=== PATIENT | female | born 1965 | race Caucasian/White ===

== ENCOUNTER 2016-12-18 17:25 | Emergency (ER) | payer SELFPAY ==
--- NOTE | 2016-12-18 17:56 | UC ---
Upper Extremity HPI - HPI Summary HPI Summary: 51 YEAR OLD FEMALE PRESENTS WITH COMPLAINS OF RIGHT SHOULDER PAIN AFTER A STUDENT KEPT PULLING ON HER ARM. - History of Current Complaint Stated Complaint: RIGHT SHOULDER PAIN Time Seen by Provider: 12/18/16 17:55 Hx Obtained From: Patient Hx Last Menstrual Period: 02/11/13 Onset/Duration: Sudden Onset Severity Initially: Moderate Severity Currently: Moderate Pain Scale Used: 0-10 Numeric - 6 Location Of Pain: Is Discrete @ Character: Sharp, Throbbing - Allergies/Home Medications Allergies/Adverse Reactions: Allergies Allergy/AdvReac Type Severity Reaction Status Date / Time Sulfa Drugs Allergy Intermediate Rash Verified 12/18/16 18:35 PMH/Surg Hx/FS Hx/Imm Hx Previously Healthy: Yes - Surgical History Surgical History: Yes Surgery Procedure, Year, and Place: . TMJ Surgery. GANGLION CYST - Lt MIDDLE FINGER. COLLAR FX - REPAIR. RIGHT THUMB GANGLION CYST REMOVAL- [facility] - Social History Alcohol Use: Rare Substance Use Type: None Smoking Status (MU): Never Smoked Tobacco Review of Systems Constitutional: Negative Skin: Negative Eyes: Negative ENT: Negative Respiratory: Negative Cardiovascular: Negative Gastrointestinal: Negative Genitourinary: Negative Motor: Negative Neurovascular: Negative Musculoskeletal: Other: - RIGHT SHOULDER PAIN/STRAIN Neurological: Negative Psychological: Negative All Other Systems Reviewed And Are Negative: Yes Physical Exam Triage Information Reviewed: Yes Appearance: Well-Appearing Eye Exam: Normal ENT Exam: Normal Dental Exam: Normal Neck exam: Normal Neck: Positive: 1 Respiratory Exam: Normal Cardiovascular Exam: Normal Abdominal Exam: Normal Musculoskeletal: Positive: Other: - RIGHT SHOULDER PAIN Neurological Exam: Normal Psychological Exam: Normal Skin Exam: Normal Upper Extremity Course/Dx - Differential Dx/Diagnosis Provider Diagnoses: RIGHT BICEP TENDONITIS. RIGHT SHOULDER IMPINGENT Discharge - Discharge Plan Condition: Stable Disposition: HOME Prescriptions: Meloxicam [Mobic] 7.5 mg PO BID PC #30 tab Methocarbamol TAB* [Robaxin 500 MG TAB*] 500 mg PO TID PRN #30 tab PRN Reason: Spasms Patient Education Materials: Shoulder Sprain (ED) Referrals: Billy Mendez MD [Medical Doctor] - Antony Moreno DO [Primary Care Provider] -
[2016-12-18 18:35] VITALS: BP 150/74
== END 2016-12-18 18:35 | disposition home or self-care (01) ==
LOC: UCCORT 17:25
DX: M75.21 Bicipital tendinitis, right shoulder (principal); M25.811 Other specified joint disorders, right shoulder; Z88.2 Allergy status to sulfonamides
CPT/HCPCS: 99212; G0463

== ENCOUNTER 2018-08-29 18:59 | Emergency (ER) | payer BC ==
[2018-08-29 19:54] VITALS: BP 126/62
--- NOTE | 2018-08-29 20:04 | UC ---
Throat Pain/Nasal Bhanu HPI - HPI Summary HPI Summary: 53 y/o female presents to the urgent care c/o sore throat for the past 3 days. Hoarseness and a dry cough developed today. He grand daughter have similar symptoms. Pain w/ swallowing is 6/10. She has been taking Ibuprofen 400mg PO to alleviate symptoms. Pt denies fever, HENDERSON, dizziness, chest pain abdominal pain , N/V/D. - History of Current Complaint Chief Complaint: UCGeneralIllness Stated Complaint: SORE THROAT Time Seen by Provider: 08/29/18 19:41 Hx Obtained From: Patient Hx Last Menstrual Period: 02/2018 ?: No - menopausal Onset/Duration: Gradual Onset, Lasting Days - 3 days, Still Present, Worse Since - today Severity: Moderate Pain Intensity: 2 Pain Scale Used: 0-10 Numeric Cough: Nonproductive Associated Signs & Symptoms: Positive: Hoarseness, Nasal Discharge - clear. Negative: Dysphagia, Wheezing - Epiglottits Risk Factors Epiglottis Risk Factors: Negative - Allergies/Home Medications Allergies/Adverse Reactions: Allergies Allergy/AdvReac Type Severity Reaction Status Date / Time Sulfa (Sulfonamide Allergy Rash Verified 08/29/18 19:43 Antibiotics) Home Medications: Home Medications Ibuprofen TAB* [Advil TAB*] 400 mg PO Q6H PRN 08/29/18 [History Confirmed ] Losartan/Hydrochlorothiazide [Losartan Potassium/Hydroc 100-25 mg] 1 tab PO DAILY 08/29/18 [History Confirmed 08/29/18] PMH/Surg Hx/FS Hx/Imm Hx Previously Healthy: Yes Cardiovascular History: Hypertension - Surgical History Surgical History: Yes Surgery Procedure, Year, and Place: . TMJ Surgery. GANGLION CYST - Lt MIDDLE FINGER. COLLAR FX - REPAIR. RIGHT THUMB GANGLION CYST REMOVAL- [facility]. RIGHT ELBOW AND CARPAL TUNNEL SX~2016 - Family History Known Family History: Positive: Unknown - Pt is adopted - Social History Occupation: Employed Full-time Lives: With Family Alcohol Use: Rare Substance Use Type: None Smoking Status (MU): Never Smoked Tobacco Review of Systems All Other Systems Reviewed And Are Negative: Yes Constitutional: Positive: Negative Skin: Positive: Negative Eyes: Positive: Negative ENT: Positive: Sore Throat, Nasal Discharge - clear, Other - hoarseness Respiratory: Positive: Cough - dry Cardiovascular: Positive: Negative Gastrointestinal: Positive: Negative Genitourinary: Positive: Negative Motor: Positive: Negative Neurovascular: Positive: Negative Musculoskeletal: Positive: Negative Neurological: Positive: Negative Psychological: Positive: Negative Is Patient Immunocompromised?: No Physical Exam - Summary Physical Exam Summary: VITAL SIGNS: Reviewed. GENERAL: Patient is a well developed and nourished female who is sitting comfortable in the examining table. Patient is not in any acute respiratory distress. HEAD AND FACE: No signs of trauma. No ecchymosis, hematomas or skull depressions. No sinus tenderness. EYES: PERRLA, EOMI x 2, No injected conjunctiva, no nystagmus. No photophobia. EARS: Hearing grossly intact. Ear canals and tympanic membranes are within normal limits. MOUTH: Positive pharynx with erythema, exudates, palatal petechiae. B/L tonsillar enlargement with exudate. Uvula in midline. NECK: Supple, trachea is midline, Positive anterior cervical lymphadenopathy, no JVD, no carotid bruit, no c-spine tenderness, neck with full ROM. No meningeal signs, no Kernig's or brudzinskis signs. CHEST: Symmetric, no tenderness at palpation LUNGS: Clear to auscultation bilaterally. No wheezing or crackles. CVS: Regular rate and rhythm, S1 and S2 present, no murmurs or gallops appreciated. ABDOMEN: Soft, non-tender. No signs of distention. No rebound no guarding, and no masses palpated. Bowel sounds are normal. EXTREMITIES: FROM in all major joints, no edema, no cyanosis or clubbing. NEURO: Alert and oriented x 3. No acute neurological deficits. Speech is normal and follows commands. SKIN: Dry and warm Triage Information Reviewed: Yes Vital Signs: Initial Vital Signs Temp 98.1 F 08/29/18 19:44 Pulse 93 08/29/18 19:44 Resp 18 08/29/18 19:44 BP 126/62 08/29/18 19:44 Pulse Ox 98 08/29/18 19:44 Throat Pain/Nasal Course/Dx - Course Course Of Treatment: 53 y/o female presents to the urgent care c/o sore throat for the past 3 days. Hoarseness and a dry cough developed today. He grand daughter have similar symptoms. Pain w/ swallowing is 6/10. She has been taking Ibuprofen 400mg PO to alleviate symptoms. Pt denies fever, HENDERSON, dizziness, chest pain abdominal pain , N/V/D. Pt w/ pharyngitis on examination. Rapid strep ordered, result: negative. Viral pharyngitis.Pt Rx ibuprofen PO to alleviates symptoms of pain and swelling. Advised on hand washing to avoid spreading. Pt advised to rest her voice, eat well and avoid strenuous exercise. If symptoms do not improve or worsen advised to return to the urgent care or f/u with her PCP for further evaluation and treatment. d/C instructions explained. Pt understood and agreed w / plan of care - Differential Dx/Diagnosis Differential Diagnosis/HQI/PQRI: Laryngitis, Pharyngitis, Tonsillitis, URI Provider Diagnosis: Acute viral pharyngitis Discharge - Sign-Out/Discharge Documenting (check all that apply): Patient Departure - d/C home All imaging exams completed and their final reports reviewed: No Studies - Discharge Plan Condition: Stable Disposition: HOME Patient Education Materials: Pharyngitis (ED) Referrals: Patricia Pat MD [Primary Care Provider] - 3 Days Additional Instructions: 1-Please take ibuprofen PO q6-8hrs prn as instructed after meals to alleviate pain and swelling. Increase fluid intake, eat well, rest and avoid strenuous exercise 2-If symptoms do not improve or worsen please return to the urgent care or f/u with your PCP for further evaluation and treatment. - Billing Disposition and Condition Condition: STABLE Disposition: Home
== END 2018-08-29 20:18 | disposition home or self-care (01) ==
LOC: UCCORT 18:59
DX: J02.8 Acute pharyngitis due to other specified organisms (principal); I10 Essential (primary) hypertension
CPT/HCPCS: 87651; 99211; G0463

== ENCOUNTER 2018-12-17 17:52 | Emergency (ER) | payer BC ==
[2018-12-17 19:06] VITALS: BP 134/70
--- NOTE | 2018-12-17 19:12 | UC ---
Throat Pain/Nasal Bhanu HPI - HPI Summary HPI Summary: 53-year-old female with cold symptoms for approximately 2 weeks and now with sinus congestion and pressure. She is a nonsmoker. - History of Current Complaint Chief Complaint: UCGeneralIllness Stated Complaint: SINUS AND CHEST CONGESTION Time Seen by Provider: 12/17/18 19:12 Hx Obtained From: Patient Hx Last Menstrual Period: 02/2018 ?: No Onset/Duration: Gradual Onset Severity: Mild Pain Intensity: 3 Cough: Nonproductive Associated Signs & Symptoms: Positive: Sinus Discomfort, Nasal Discharge - Allergies/Home Medications Allergies/Adverse Reactions: Allergies Allergy/AdvReac Type Severity Reaction Status Date / Time Sulfa (Sulfonamide Allergy Rash Verified 08/29/18 19:43 Antibiotics) PMH/Surg Hx/FS Hx/Imm Hx Previously Healthy: Yes GI/ History: Gastroesophageal Reflux - Surgical History Surgical History: Yes Surgery Procedure, Year, and Place: . TMJ Surgery. GANGLION CYST - Lt MIDDLE FINGER. COLLAR FX - REPAIR. RIGHT THUMB GANGLION CYST REMOVAL- [facility]. RIGHT ELBOW AND CARPAL TUNNEL SX~2015 - Family History Known Family History: Positive: Unknown - Pt is adopted - Social History Alcohol Use: None Substance Use Type: None Smoking Status (MU): Never Smoked Tobacco Review of Systems All Other Systems Reviewed And Are Negative: Yes ENT: Positive: Nasal Discharge, Sinus Congestion, Sinus Pain/Tenderness Respiratory: Positive: Cough - Occasional nonproductive cough. Is Patient Immunocompromised?: No Physical Exam Triage Information Reviewed: Yes Appearance: Well-Appearing, No Pain Distress, Well-Nourished Vital Signs: Initial Vital Signs Temp 98.9 F 12/17/18 18:59 Pulse 97 12/17/18 18:59 Resp 18 12/17/18 18:59 BP 134/70 12/17/18 18:59 Pulse Ox 100 12/17/18 18:59 Vital Signs Reviewed: Yes Eyes: Positive: Conjunctiva Clear ENT: Positive: Hearing grossly normal, Pharynx normal, Nasal congestion, Nasal drainage - Yellow purulent nasal discharge., TMs normal, Sinus tenderness, Uvula midline, Other - Tenderness on palpation maxillary sinuses bilaterally. Neck: Positive: Supple, Nontender, No Lymphadenopathy Respiratory: Positive: Lungs clear, Normal breath sounds, No respiratory distress, No accessory muscle use, Other: - Tight cough but no wheezing. Cardiovascular: Positive: RRR, No Murmur, Pulses Normal, Brisk Capillary Refill Musculoskeletal Exam: Normal Neurological Exam: Normal Psychological Exam: Normal Skin Exam: Normal Throat Pain/Nasal Course/Dx - Course Course Of Treatment: I am going to treat the patient for a sinusitis and since she had some improvement using her daughter's albuterol inhaler I'm going to give her an inhaler as well as treat her with some prednisone taper. She is to follow-up with her primary care provider if no improvement in 4 or 5 days. - Differential Dx/Diagnosis Provider Diagnosis: Sinusitis Discharge ED - Sign-Out/Discharge Documenting (check all that apply): Patient Departure All imaging exams completed and their final reports reviewed: No Studies - Discharge Plan Condition: Fair Disposition: HOME Prescriptions: Albuterol HFA INHALER* [Ventolin HFA Inhaler*] 2 puff INH Q4H PRN 5 Days #1 mdi PRN Reason: Wheezing DOXYcycline CAP(*) [DOXYcycline 100MG CAP(*)] 100 mg PO BID 10 Days #20 cap predniSONE TAB* [Deltasone 10 MG TAB*] 10 mg PO DAILY 12 Days #30 tab Patient Education Materials: Sinusitis (ED) Referrals: Patricia Pat MD [Primary Care Provider] - Additional Instructions: Increase fluids. No dairy products, antacids or multivitamins 2 hours before you take the doxycycline or 2 hours after you take doxycycline however take it with food because it comes cause stomach upset. Use her albuterol inhaler 2 puffs every 4-6 hours as needed for wheezing or tight cough. Take the prednisone with food. Definite follow-up with your primary care provider if no improvement in 4 or 5 days. - Billing Disposition and Condition Condition: FAIR Disposition: Home
== END 2018-12-17 19:24 | disposition home or self-care (01) ==
LOC: UCCORT 17:52
DX: J32.9 Chronic sinusitis, unspecified (principal); Z88.2 Allergy status to sulfonamides
CPT/HCPCS: 99212; G0463